=== PATIENT | female | born 1975 | race Caucasian/White ===

== ENCOUNTER 2016-11-15 08:58 | Emergency (ER) | payer MEDICAID ==
[~2016-11-15 08:58] MED LIST: ALBUTEROL17 GM INH; ALBUTEROL2.5 MG/0.5 IH; AMOXICILLIN500 M PO; AMOXICILLIN875 MG PO; AMOXIL500 MG PO; ANTIVERT25 MG PO; ATIVAN0.5 M1 PO; ATIVAN1 M1 PO; ATIVAN1 M2 PO; ATIVAN1 MG PO; ATIVAN2 M1 PO; ATIVAN2 MG PO; AUGMENTIN; AUGMENTIN 875-11 TAB PO; BACTRIM DS1 TA1 PO; CATAFLAM50 MG PO; CIPRO500 M2 PO; CIPRO500 MG PO; COMBIVENT INH14.7 GM IH; DILANTIN100 MG PO; DOCUSATE SODIU100 M2 PO; DYAZIDE 37.5/251 CAP PO; EFFER-K 10 MEQ10 MEQ PO; ELIPHOS667 MG/TAB PO; ERYTHROMYCIN3.5 GM OP; FLEXERIL10 MG PO; H PO; HYDROCHLOROTHIA25 M1 PO; HYDROCODON-ACE1 EA15 PO; HYDROCODONE/APA1 TAB PO; IBUPROFEN600 MG; IBUPROFEN600 MG PO; KEPPRA1000 M1 PO; KEPPRA500 M1 PO; KEPPRA500 M3 PO; KEPPRA500 MG PO; KEPPRA750 M2 PO; LISINOPRIL-HCT1 EAC1 PO; LISINOPRIL10 MG PO; LISINOPRIL20 MG PO; LISINOPRIL40 MG PO; LOPRESSOR100 M1 PO; LOPRESSOR50 M1 PO; LORAZEPAM2 M1 PO; LORTAB 5/500 TA1 TAB PO; LORTAB 7.5/5001 TAB PO; METOPROLOL; METOPROLOL TART25 MG PO; METOPROLOL TART50 M2 PO; MOTRIN600 MG PO; NICODERM14 MG/PAT1 TD; NICODERM21 MG/PATC TD; NORCO; NORCO 10-325 T1 EACH PO; NORCO 10/325 TA1 TAB PO; NORCO 10/3251 TA1 PO; NORCO 10/3251 TAB PO; NORCO 5-325 TA1 EACH PO; NORCO 5/325 TAB1 TAB; NORCO 5/325 TAB1 TAB PO; NORCO 5/3251 TAB PO; NORCO 7.5-3251 EACH PO; NORCO 7.5/325 T1 TAB PO; NORCO PO; NORVASC10 M1 PO; NORVASC10 M2 PO; NORVASC10 MG PO; NORVASC5 MG PO; OXYCODONE HCL5 M1 PO; OXYCONTIN10 M2 PO; PEN-VEE K500 MG PO; PERCOCET 10/31 UDTAB PO; PERCOCET 5-3251 EACH PO; PERCOCET 5/3251 TAB PO; PHENERGAN25 MG PO; PREDNISONE20 MG PO; PRILOSEC20 MG; PROMETHAZINE HC25 M3 PO; PYRIDIUM200 M1 PO; ROXICODONE5 M2 PO; SENNA8.8 MG/5 M PO; SENOKOT8.6 MG PO; TIAZAC120 MG PO; TRANSDERM-1 PATCH .7 TD; TRANSDERM-SCOP1 EACH TD; TRANSDERM-SCOP1 EACH TP; TYLENOL500 MG; VENTOLIN HFA18 GM IH; VIBRAMYCIN100 MG; VICODIN 5/500 T1 TAB PO; VICOPROFEN 200-1 TAB PO; WOMEN'S LAXATIVE5 M2 PO; XANAX0.5 MG PO; XANAX1 M1 PO; XANAX2 M1 PO; ZESTRIL20 MG; ZOFRAN ODT4 MG PO; ZOFRAN ODT4 MG/UDTAB PO; ZOFRAN4 M1 PO; ZOFRAN4 M2 PO; ZOFRAN4 MG PO; ZOLOFT50 MG PO; [UNRECOGNIZED DRUG - REMARK]
[2016-11-15] MEDS ORDERED: ATIVAN1 M2 PO (09:19)
[2016-11-15] MEDS ORDERED: OXYCONTIN40 M2 PO (09:24)
[2017-03-07] MEDS ORDERED: ATIVAN1 M2 PO ×2 (09:53→12:39)
[2017-03-07] MEDS ORDERED: NORCO 10-325 T1 EACH PO (09:54)
== END 2016-11-15 09:32 ==
LOC: EDMED 08:58
DX: S86.811A Strain of other muscle(s) and tendon(s) at lower leg level, right leg, initial encounter (principal); F41.9 Anxiety disorder, unspecified; G40.909 Epilepsy, unspecified, not intractable, without status epilepticus; Z79.899 Other long term (current) drug therapy; X58.XXXA Exposure to other specified factors, initial encounter

== ENCOUNTER 2016-12-06 01:16 | Emergency (ER) | payer MEDICAID ==
[~2016-12-06 01:16] MED LIST changes: +OXYCONTIN40 M2 PO
[2016-12-06] MEDS ORDERED: NORCO 5/3251 TAB PO (02:52)
[2017-03-07] MEDS ORDERED: ATIVAN1 M2 PO ×2 (09:53→12:39)
[2017-03-07] MEDS ORDERED: NORCO 10-325 T1 EACH PO (09:54)
== END 2016-12-06 02:58 ==
LOC: EDMED 01:16
DX: M71.21 Synovial cyst of popliteal space [Baker], right knee (principal); R58 Hemorrhage, not elsewhere classified; R22.31 Localized swelling, mass and lump, right upper limb; G89.29 Other chronic pain; I10 Essential (primary) hypertension; I12.9 Hypertensive chronic kidney disease with stage 1 through stage 4 chronic kidney disease, or unspecified chronic kidney disease; N18.9 Chronic kidney disease, unspecified; F41.9 Anxiety disorder, unspecified; G40.909 Epilepsy, unspecified, not intractable, without status epilepticus; Z87.442 Personal history of urinary calculi; F17.210 Nicotine dependence, cigarettes, uncomplicated; Z79.899 Other long term (current) drug therapy
CPT/HCPCS: J2270

== ENCOUNTER 2016-12-06 13:29 | Emergency (ER) | payer MEDICAID ==
[2017-03-07] MEDS ORDERED: ATIVAN1 M2 PO ×2 (09:53→12:39)
[2017-03-07] MEDS ORDERED: NORCO 10-325 T1 EACH PO (09:54)
== END 2016-12-06 15:29 ==
LOC: EDMED 13:29
DX: M71.21 Synovial cyst of popliteal space [Baker], right knee (principal); F41.9 Anxiety disorder, unspecified; I10 Essential (primary) hypertension; Z86.19 Personal history of other infectious and parasitic diseases
CPT/HCPCS: J2060